=== PATIENT | female | born 1965 | race Caucasian/White ===

== ENCOUNTER 2023-02-02 18:08 | Emergency (ER) | payer OTHER ==
[~2023-02-02] VITALS: Ht 167.6 cm; Wt 68.0 kg
[2023-02-02] MEDS ORDERED: TYL2T PO (18:56)
[2023-02-02] MEDS ORDERED: ACETAMINOPHEN 325 MG TABLET PO ONE (19:00)
[2023-02-02] MEDS ORDERED: TDAP [DIPH/PERTUSSIS/TET] 0.5 ML VIAL IM ONE (19:00)
[2023-02-02 19:14] VITALS: BP 134/84; TEMP 98; O2SAT 98
== END 2023-02-02 19:15 | disposition home or self-care (01) ==
LOC: ER 18:15
DX: S01.01XA Laceration without foreign body of scalp, initial encounter (principal); W10.9XXA Fall (on) (from) unspecified stairs and steps, initial encounter; Y93.89 Activity, other specified; Y92.89 Other specified places as the place of occurrence of the external cause; Y99.8 Other external cause status
CPT/HCPCS: 99282; A6403